=== PATIENT | female | born 1995 | race Caucasian/White ===

== ENCOUNTER 2020-04-04 13:06 | Inpatient (IN) ==
[2020-04-04] MEDS ORDERED: ONDANSETRON 4 MG/2 ML VIAL IV PRN (14:08)
[2020-04-04] MEDS ORDERED: MEPERIDINE 50 MG/1 ML VIAL IV PRN (14:08)
[2020-04-04] MEDS ORDERED: BUTORPHANOL 2 MG/ML VIAL IV PRN (14:08)
[2020-04-04] MEDS ORDERED: AMPICILLIN 2,000 MG VIAL ONE (14:13)
[2020-04-04] MEDS ORDERED: SODIUM CHLORIDE 0.9% 100 ML IV ONE (14:13)
[2020-04-04] MEDS ORDERED: AMPICILLIN INJ 2,000 MG in SODIUM CHLORIDE 0.9% 100 ML IV ONE (14:17)
[2020-04-04 14:26] LABS: Basophils % 0.2 % (0.0-0.8); Eosinophils # 0.1 10*3/uL (0.0-0.87); Eosinophils % 0.8 % (0.00-10.9); Hematocrit 31.8 VOL% (35.7-47.0); Hemoglobin 9.5 GM/DL (12.0-16.0); Immature Granulocytes % 0.8 %; Immature Granulocytes Absolute 0.08 #; Lymphocytes # 1.6 10*3/uL (1.4-4.0); Lymphocytes % 16.5 % (21.3-54.2); Mean Corpuscular HGB Conc 29.9 GM/DL (32-36); Mean Corpuscular Volume 76.8 FL (87-102); Mean Platelet Volume 10.5 FL (9.6-12.0); Monocytes % 7.5 % (1.7-12.7); NRBC # 0.04 10*3/uL; Neutrophils % 74.2 % (38.7-73.9); Platelet Count 264 T/CUMM (130-400); Red Blood Count 4.14 MC/CUMM (3.8-5.5); Red Cell Distribution Width 16.3 % (9.3-17.3); White Blood Count 9.9 T/CUMM (4-12)
[2020-04-04] MEDS ORDERED: LACTATED RINGERS 1,000 ML IV SCH ×2 (14:30→23:30)
[2020-04-04] MEDS: AMPICILLIN INJ 1,000 MG in SODIUM CHLORIDE 0.9% 100 ML IV SCH ×2 (18:09→21:56)
[2020-04-04] MEDS ORDERED: FAMOTIDINE 20 MG/2 ML VIAL IV ONE (23:30)
[2020-04-04] MEDS ORDERED: LACTATED RINGERS 1,000 ML IV ONE (23:30)
[2020-04-04] MEDS ORDERED: CITRIC ACID/SODIUM CITRATE 30 ML UDCUP PO ONE (23:30)
[2020-04-04] MEDS ORDERED: OXYTOCIN/LR 20 UNIT/1,000 ML BAG IV SCH (23:30)
[2020-04-04] MEDS ORDERED: diphenhydrAMINE 50 MG/1 ML VIAL IV PRN ×2 (23:30)
[2020-04-04] MEDS ORDERED: NALOXONE 0.4 MG/ML VIAL IV PRN (23:30)
[2020-04-05] MEDS: fentaNYL 2 MCG/ROPIV 0.2% EPID 100 ML EPIDURAL SCH ×3 (00:25→12:35)
[2020-04-05] MEDS: ePHEDrine 50 MG/ML VIAL IV PRN ×3 (01:09→01:24)
[2020-04-05] MEDS: AMPICILLIN INJ 1,000 MG in SODIUM CHLORIDE 0.9% 100 ML IV SCH ×3 (01:55→10:09)
[2020-04-05 02:38] LABS: Apearance,Urine CLEAR (Clear); Bilirubin,Urine Negative (Negative); Blood, Urine Negative (Negative); Glucose,Urine (UA) Negative (Negative); Ketones,Urine Negative (Negative); Mucus,Urine Occasional /LPF (Occasional); Nitrite,Urine Negative (Negative); Protein,Urine 30 MG/DL; RBC,Urine 1 /HPF (0-4); Squamous Epithelial Cell,Urine Occasional /HPF (0-10); Urine Color Yellow (Yellow); Urine Urobilinogen < 2.0 EU/DL (0.2-1.0); WBC,Urine 4 /HPF (0-6)
[2020-04-05] MEDS ORDERED: LIDOCAINE 1% 50 ML VIAL ONE (13:28)
[2020-04-05] MEDS ORDERED: METHYLERGONOVINE 0.2 MG/1 ML AMP ONE (13:29)
[2020-04-05] MEDS ORDERED: miSOPROStoL 200 MCG TABLET ONE (13:29)
[2020-04-05] MEDS ORDERED: WITCH HAZEL PADS 100/JAR TOP PRN (14:49)
[2020-04-05] MEDS ORDERED: BENZOCAINE 20%/MENTHOL 0.5% SPRAY 56 GM CAN TOP PRN (14:49)
[2020-04-05] MEDS ORDERED: DIPH/TET/ACEL PERT BOOSTER VACCINE 0.5 ML VIAL IM ONE (14:49)
[2020-04-05] MEDS ORDERED: ONDANSETRON 4 MG/2 ML VIAL IV PRN (14:49)
[2020-04-05] MEDS ORDERED: OXYTOCIN/LR 20 UNIT/1,000 ML BAG IV ONE (14:49)
[2020-04-05] MEDS ORDERED: LANOLIN 50% CREAM 0.3 OZ TUBE TOP PRN (14:49)
[2020-04-05] MEDS ORDERED: RHO(D) IMMUNE GLOBULIN 300 MCG SYRINGE IM ONE (14:49)
[2020-04-05] MEDS ORDERED: MEASLES/MUMPS/RUBELLA VACCINE 0.5 ML VIAL SUBCUT ONE (14:49)
[2020-04-05] MEDS ORDERED: BISACODYL 10 MG SUPP RECTAL PRN (14:49)
[2020-04-05] MEDS ORDERED: ACETAMINOPHEN 325 MG TABLET PO PRN (14:49)
[2020-04-05] MEDS ORDERED: HYDROCORTISONE 2.5% RECTAL CREAM 30 GM TUBE TOP PRN (14:49)
[2020-04-05 14:57] LABS: Cord Arterial Blood HCO3 21.6 MMOL/L
[2020-04-05 15:03] LABS: Cord Venous Blood HCO3 19.7 MMOL/L; Cord Venous Blood PCO2 43.1 MMHG; Cord Venous Blood PO2 23.1 MMHG
[2020-04-05] MEDS: IBUPROFEN 800 MG TABLET PO PRN (16:12)
[2020-04-05] MEDS: oxyCODONE/ACETAMINOPHEN 5-325 MG TABLET PO PRN (18:47)
[2020-04-05] MEDS: DOCUSATE SODIUM 100 MG CAPSULE PO SCH (21:49)
[2020-04-06 05:14] LABS: Basophils % 0.2 % (0.0-0.8); Eosinophils # 0.1 10*3/uL (0.0-0.87); Hematocrit 24.5 VOL% (35.7-47.0); Hemoglobin 7.2 GM/DL (12.0-16.0); Immature Granulocytes % 0.6 %; Immature Granulocytes Absolute 0.07 #; Lymphocytes # 2.2 10*3/uL (1.4-4.0); Lymphocytes % 18.6 % (21.3-54.2); Mean Corpuscular HGB Conc 29.4 GM/DL (32-36); Mean Corpuscular Volume 78.5 FL (87-102); Mean Platelet Volume 10.5 FL (9.6-12.0); Monocytes % 7.5 % (1.7-12.7); NRBC # 0.02 10*3/uL; Neutrophils % 72.1 % (38.7-73.9); Platelet Count 214 T/CUMM (130-400); Red Blood Count 3.12 MC/CUMM (3.8-5.5); Red Cell Distribution Width 16.6 % (9.3-17.3); White Blood Count 11.9 T/CUMM (4-12)
[2020-04-06] MEDS: IBUPROFEN 800 MG TABLET PO PRN ×2 (05:46→19:40)
[2020-04-06] MEDS: DOCUSATE SODIUM 100 MG CAPSULE PO SCH ×2 (09:08→20:04)
[2020-04-06] MEDS ORDERED: SODIUM CHLORIDE 0.9% 1,000 ML IV PRN (11:21)
[2020-04-06] MEDS: oxyCODONE/ACETAMINOPHEN 5-325 MG TABLET PO PRN ×2 (11:26→19:23)
[2020-04-06 22:32] LABS: Basophils % 0.2 % (0.0-0.8); Eosinophils # 0.2 10*3/uL (0.0-0.87); Eosinophils % 2.1 % (0.00-10.9); Hemoglobin 8.5 GM/DL (12.0-16.0); Immature Granulocytes Absolute 0.11 #; Lymphocytes # 2.4 10*3/uL (1.4-4.0); Lymphocytes % 21.3 % (21.3-54.2); Mean Corpuscular HGB Conc 30.4 GM/DL (32-36); Mean Corpuscular Volume 80.2 FL (87-102); Mean Platelet Volume 10.3 FL (9.6-12.0); Monocytes % 6.6 % (1.7-12.7); NRBC # 0.02 10*3/uL; Neutrophils % 68.8 % (38.7-73.9); Platelet Count 225 T/CUMM (130-400); Red Blood Count 3.49 MC/CUMM (3.8-5.5); Red Cell Distribution Width 16.4 % (9.3-17.3)
[2020-04-07] MEDS: IBUPROFEN 800 MG TABLET PO PRN (03:05)
[2020-04-07] MEDS: oxyCODONE/ACETAMINOPHEN 5-325 MG TABLET PO PRN ×2 (03:05→11:58)
[2020-04-07 08:22] VITALS: BP 118/64
[2020-04-07] MEDS: DOCUSATE SODIUM 100 MG CAPSULE PO SCH (08:45)
== END 2020-04-07 13:30 | disposition home or self-care (01) | DRG 806 ==
LOC: N.LDOUT 13:06 → N.LD 13:07 → N.OB 04-05 18:31
PROVIDERS: ADMIT Obstetrics & Gynecology; ATTEND Obstetrics & Gynecology